=== PATIENT | male | born 1975 | race Caucasian/White ===

== ENCOUNTER → 2021-04-08 16:10 | Outpatient (BNVA) | payer BC, MEDICAID, SELFPAY | PROVIDERS: Visit Provider Nurse Practitioner Family | DX: Z20.822 Contact with and (suspected) exposure to COVID-19 (principal) | CPT/HCPCS: 87426 ==

== ENCOUNTER 2021-09-28 13:51 | Emergency (ER) | payer BC, MEDICAID, SELFPAY ==
[2021-09-28 14:00] VITALS: BP 148/83; PULSE 69; RESP 16; TEMP 36.8; O2SAT 98; BMI 28.5
--- NOTE | 2021-09-28 15:04 | W.ED.DENTAL ---
HPI - Dental/Oral General: Chief complaint: Dental/Oral Stated complaint: dental pain/sore throat Time Seen by Provider: 09/28/21 14:18 History of Present Illness: Patient is a 45-year-old male comes to the ED with dental pain. Dental pain was located in the back lower right molar pain has been going on now for several days. He rates the pain currently a 7 out of 10. He is taken 800 mg of ibuprofen earlier today to help with pain. He has been calling around dentist to see if he can get in and be evaluated. He talked with Dr. Parra and he would see patient for evaluation. Associated symptoms: Denies fever(s) or odynophagia Review of Systems Const: Denies: fever(s), chills or fatigue Eyes: Denies: change in vision or eye discomfort ENMT: Reports: dental pain; Denies: throat pain, odynophagia, nasal discharge or nasal congestion Card: Denies: chest pain, palpitations, edema, swelling of feet/ankles, dyspnea on exertion or orthopnea Resp: Denies: dyspnea, productive cough or non-productive cough GI: Denies: abdominal pain, nausea, vomiting, diarrhea, constipation or hematochezia : Denies: flank pain, difficulty urinating, dysuria or hematuria Musc: Denies: neck pain, back pain or extremity swelling Skin/Breast: Denies: rash or new lesions Neuro: Denies: headache(s), numbness in extremities or weakness in extremities PFS ED PFSH: Medical History No pertinent family history No pertinent past medical history Physical Exam Const: COMMON NORMALS: patient oriented x3 and alert GENERAL APPEARANCE: cooperative HENMT: COMMON NORMALS: normocephalic HEAD & SCALP: normocephalic MOUTH: Normal oral and palatal mucosa present TEETH & GINGIVA: Yes caries (Dental caries back lower right molars.) THROAT: posterior oropharynx normal and uvula midline Neck/C-Spine: COMMON NORMALS: supple GENERAL: Yes normal visual inspection Resp: COMMON NORMALS: normal respiratory effort, No retractions, No use of accessory muscles and clear to auscultation bilaterally AUSCULTATION: clear to auscultation bilaterally Cardio: COMMON NORMALS: regular rate, regular rhythm, S1 normal heart sound present, S2 normal heart sound present, No gallops present (Cardio), No clicks present (Cardio), No murmurs present (Cardio) and Peripheral pulses 2+ throughout RATE: regular rate RHYTHM: regular rhythm HEART SOUNDS: S1 normal heart sound present and S2 normal heart sound present PERIPHERAL PULSES: Peripheral pulses 2+ throughout GI: COMMON NORMALS: Normal to inspection, nondistended, normoactive bowel sounds present, Soft to palpation, non-tender and no masses PALPATION: Yes Soft to palpation : COMMON NORMALS: Yes no CVA tenderness BLADDER/KIDNEY EXAM: Yes no CVA tenderness Back/Pelvis: COMMON NORMALS: no CVA tenderness Extremity: COMMON NORMALS: normal to inspection Neuro: COMMON NORMALS: patient oriented x3 and moves all extremities SENSORIUM/ORIENTATION: Yes alert Skin: GENERAL SKIN EXAM: dry skin Course Vital Signs: Vital signs: Vital Signs Temperature 98.2 F 09/28/21 14:00 Pulse Rate 69 09/28/21 14:00 Respiratory Rate 16 09/28/21 14:00 Blood Pressure 148/83 09/28/21 14:00 Pulse Oximetry 98 09/28/21 14:00 [facility] - Dental/Oral Medical Decision Making Patient is a 45-year-old male comes to the ED with dental pain. Symptoms started a couple days ago. He currently has a dentist that we will see him for further evaluation. Exam shows a nontoxic-appearing 45-year-old male in no acute distress. He does have some dental caries in his back bottom right molars. He was diagnosed with dental pain due to dental caries and discharged home with a prescription for clindamycin and Celebrex. Return ED precautions given. Follow-up with dentist at your appointment for further evaluation. Patient understood agree with plan. Discharge Plan Discharge Patient Disposition: Home Clinical Impression: Pain due to dental caries Condition: Stable Prescriptions: New clindamycin HCl 150 mg capsule 300 mg PO QID 7 Days Qty: 56 0RF Celebrex 100 mg capsule 100 mg PO BID PRN (Reason: pain) Qty: 30 0RF Lidocaine Viscous 2 % solution 1 applic mucous membrane BID PRN (Reason: pain) Qty: 100 0RF Discharge Orders: Discharge ED (Routine); Ordered 09/28/21 Ordered By: Cory Palmer Discharge Diet: Regular Discharge Activity: Resume usual activity Patient Instructions: Dental Caries (Cavities) Activity Restrictions/Additional Instructions: Follow-up with dentist as soon as possible for further evaluation of dental pain. Take medications as prescribed. Return to the ER or your medical provider if condition worsens. Please read and understand discharge instructions. Thank you for choosing [facility] for your healthcare needs today. Please realize this is an emergency room and that we are providing you with a medical screening exam and this may not be complete and all inclusive of all the testing and or work up that you may need to determine your ailment or severity of your illness. It is very important that you follow up as instructed or that you return to the Emergency Department should you have concerns or if your condition changes or worsens in any way. Coding Level of Care Code ED Footwear Sales Representative for Karli Fwdeepa Exam Comprehensive
[2021-09-28] MEDS: HYDROcodone-acetaminophen 7.5-325 mg Tablet 1 TAB PO (15:22)
[2021-09-28] MEDS: clindamycin 150 mg Capsule 300 MG PO (15:22)
== END 2021-09-28 15:27 | disposition home or self-care (01) ==
PROVIDERS: Emergency Provider Physician Assistant
DX: K02.9 Dental caries, unspecified (principal)
CPT/HCPCS: 99283

== ENCOUNTER 2023-02-06 10:49 | Emergency (ER) | payer BC, MEDICAID, SELFPAY ==
[2023-02-06 11:06] VITALS: BP 136/78; PULSE 74; RESP 17; TEMP 36.4; O2SAT 99; BMI 27.9
--- NOTE | 2023-02-06 11:42 | XRR_ITS ---
PROCEDURE INFORMATION: Exam: XR Right Shoulder Exam date and time: 02/06/2023 11:47 AM Age: 47 years old Clinical indication: Pain; Shoulder; Right; Additional info: Pain and possbile injury TECHNIQUE: Imaging protocol: Radiologic exam of the right shoulder. Views: 2 or more views. COMPARISON: No relevant prior studies available. FINDINGS: Bones/joints: Normal. Soft tissues: Normal. XR/XR shoulder RT min 2V* [id number] IMPRESSION: No acute findings.
--- NOTE | 2023-02-06 11:42 | W.ED.EXTPRO ---
HPI - Extremity Problem General: Chief complaint: Extremity Problem,Nontraumatic Stated complaint: left shoulder injury Time Seen by Provider: 02/06/23 11:19 Source: patient and family Mode of arrival: ambulatory Limitations: no limitations History of Present Illness: This patient presents to the emergency department because of persistent right upper extremity pain. He states his symptoms began after doing an unusual job at his workplace. He was moving boards off a conveyor predominantly carrying them on his right shoulder to another location and offloading the boards. He did this most of his workday. This is not a job he usually does. He states he felt sore at the end of the day but did not think much of it at that time. There is no falls or other known injuries. 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 He then went to [facility] and was started on analgesics and muscle relaxant. He states that his right arm is still painful predominantly noting in his upper arm and some into his right shoulder and lateral neck. He states that when he takes weight off of his arm his symptoms improved. He does have a history of carpal tunnel syndrome in the past and is having some referred pain down into his wrist. 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 but just pain in his arm per prevents him from doing his usual activities. He denies any other injuries or other symptoms at this time. He is right-handed. MD Complaint: extremity pain Radiation: distal Relieving factors: immobilization Associated symptoms: Deny chest pain, fever(s) or rash Review of Systems Const: Denies: fever(s) Eyes: Denies: change in vision ENMT: Denies: odynophagia, nasal discharge or nasal congestion Card: Denies: chest pain, palpitations, irregular heart rhythm or edema GI: Denies: abdominal pain, nausea or vomiting Musc: Reports: neck pain, back pain and extremity pain Skin/Breast: Denies: rash or pruritus Neuro: Denies: numbness in extremities or weakness in extremities PFS ED PFSH: Medical History No pertinent family history No pertinent past medical history Physical Exam Narrative: EXAM NARRATIVE: Patient makes good eye contact speech is goal-directed and fluent. Const: COMMON NORMALS: no acute distress, average body habitus and patient oriented x3 GENERAL APPEARANCE: cooperative ORIENTATION/CONSCIOUSNESS: Yes awake HENMT: COMMON NORMALS: normocephalic, atraumatic and moist oral mucous membranes HEAD & SCALP: normocephalic and atraumatic Eye: COMMON NORMALS: Equal, round and reactive pupils present PUPIL: Yes Equal, round and reactive pupils present Neck/C-Spine: OTHER: Range of motion cervical spine is normal to sidebending and rotation to the left however its restricted to approximately 60% and normal range of motion to rotation to the right. He also has limited forward bending. There is tenderness to palpation with soft tissue trigger points and tenderness along the superior trapezius. None the midline. No step-offs. No left-sided soft tissue tenderness. Chest: COMMONS NORMALS: normal inspection of the chest Resp: COMMON NORMALS: normal respiratory effort Cardio: COMMON NORMALS: Peripheral pulses 2+ throughout PERIPHERAL PULSES: Peripheral pulses 2+ throughout : COMMON NORMALS: Yes no CVA tenderness BLADDER/KIDNEY EXAM: Yes no CVA tenderness Back/Pelvis: COMMON NORMALS: no CVA tenderness, thoracic and lumbar spine normal to inspection, no thoracic nor lumbar tenderness and thoraco-lumbar ROM normal BACK IMAGE (MALE): 1. Soft tissue tenderness Extremity: COMMON NORMALS: normal to inspection NARRATIVE EXTREMITY EXAM: Right upper extremity is notable for tenderness in the proximal bicipital tendon. He also has reduced range of motion to external rotation AB duction and extension at the right shoulder. Distal range of motion at the elbow wrist and hand is normal. Neurovascular intact distally. There is no Tinel or Phalen sign noted. Remainder of his musculoskeletal examination is normal with no deformity diminished range of motion or other abnormalities noted. Neuro: COMMON NORMALS: patient oriented x3, moves all extremities, no focal motor deficits and no sensory deficits noted Psych: COMMON NORMALS: mental status grossly normal Skin: COMMON NORMALS: no rashes or lesions noted and turgor normal GENERAL SKIN EXAM: no rashes or lesions noted and turgor normal Course Reevaluation(s): Reevaluation #1: Discussed current findings, treatment recommendations and expected course. This clearly appears to be a soft tissue overuse injury likely work-related based on current history and findings. Will initiate sling to help reduce stress on the shoulder girdle and also start a Lidoderm patch to see if we can give him some additional relief. Will likely need referral for follow-up. 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 No evidence at this time to suggest occult fracture, dislocation or other concerning finding. Appears to be all soft tissue related with current clinical picture. We will attempt symptomatic relief from the emergency department with referral for follow-up. Expected course and return precautions were also reviewed Lab Data I reviewed the patient's lab results. Radiology Impressions Shoulder X-Ray 02/06/23 11:42 IMPRESSION: No acute findings. All radiology interpretation(s) finalized by discharge Discharge Plan Discharge Patient Disposition: Home Clinical Impression: Right shoulder injury Condition: Stable Prescriptions: New Lidoderm 5 % adhesive patch,medicated 1 patch topical DAILY Qty: 15 0RF Rx Instructions: leave on most painful area for up to 12 hrs No Action Celebrex 100 mg capsule 100 mg PO BID PRN (Reason: pain) Qty: 30 0RF Lidocaine Viscous 2 % solution 1 applic mucous membrane BID PRN (Reason: pain) Qty: 100 0RF Discharge Orders: Discharge ED (Routine); Ordered 02/06/23 Ordered By: Mio Her Referrals: Timothy Hu MD [Primary Care Provider] - Discharge Diet: Usual diet Discharge Activity: Limit activity as instructed and Return to work/school after cleared by PCP/Specialist Patient Instructions: Shoulder Pain (ED), Opioid Safety, Pain Management Activity Restrictions/Additional Instructions: As we discussed while you are in the emergency department you have injured your right shoulder and upper arm due to what seems to be an overuse injury at work. We have prescribed a Lidoderm patch to help with some of your discomfort as well as a sling. You should remove your shoulder from the sling several times daily to do passive range of motion to help reduce likelihood of a frozen shoulder. We also initiated a follow-up appointment with orthopedics. Your symptoms persist worsen or new symptoms develop you are welcome to return to the emergency department at any time. Coding Level of Care Code ED General Internist And Physician Leader for Karli Rand
[2023-02-06] MEDS: lidocaine 5% Patch 1 PATCH TOPICAL (13:10)
[2023-02-06 13:19] VITALS: BP 124/68; PULSE 74; RESP 16; TEMP 36.4; O2SAT 99
--- NOTE | 2023-02-07 08:24 | DCPLANNER ---
Referral was sent to ortho clinic on 02/07 at 0824am. Clinic to contact patient.
== END 2023-02-06 13:19 | disposition home or self-care (01) ==
PROVIDERS: Emergency Provider Emergency Medicine; PCP Family Medicine
DX: S49.91XA Unspecified injury of right shoulder and upper arm, initial encounter (principal); X50.0XXA Overexertion from strenuous movement or load, initial encounter; Y99.0 Civilian activity done for income or pay
CPT/HCPCS: 73030; 99283

== ENCOUNTER → 2023-02-10 09:55 | Outpatient (BNVA) | payer BC, MEDICAID, SELFPAY | PROVIDERS: PCP Family Medicine; Referring Provider Emergency Medicine; Visit Provider Physician Assistant | DX: S49.91XA Unspecified injury of right shoulder and upper arm, initial encounter (principal); M54.12 Radiculopathy, cervical region; X58.XXXA Exposure to other specified factors, initial encounter | CPT/HCPCS: 72050 ==

== ENCOUNTER 2023-03-16 13:46 | Outpatient (CLI) | payer BC, MEDICAID, SELFPAY ==
--- NOTE | 2023-03-16 13:45 | MR_ITS ---
WS: [id number] MRI CERVICAL SPINE NONCONTRAST TECHNIQUE: Sagittal T1, T2 and STIR imaging. Axial T2, gradient, and fiesta imaging. CLINICAL INFORMATION: neck pain COMPARISON: None. FINDINGS: Straightening of the normal cervical lordosis. Cord signal is normal. Mild disc bulging worse C4-C5 a nd C5-C6. C2-C3: Normal. C3-C4: Normal. C4-C5: Mild facet arthropathy. Spinal canal and foramen are patent. C5-C6: Disc osteophyte complex with endplate ridging. Effacement of the ventral thecal sac. Mild cent ral canal stenosis. Slight contact of the cervical cord. Moderate LEFT and mild RIGHT bony foraminal narrowing. Uncovertebral joint hypertrophy. Moderate facet arthropathy. C6-C7: Disc osteophyte complex with endplate ridging. Uncovertebral joint hypertrophy. Moderate RIGHT and mild LEFT bony foraminal narrowing. Mild facet arthropathy. C7-T1: Normal. Visualized brain stem structures: Normal. Prevertebral soft tissues: Normal. IMPRESSION: 1. Straightening of the normal cervical lordosis. Cord signal is normal. 2. Moderate LEFT C5-C6 and RIGHT C6-7 bony foraminal narrowing. 3. Mild central canal stenosis C5-C6 with a RIGHT paracentral disc osteophyte complex with slight co ntact of the cervical cord.
== END 2023-03-16 13:47 | disposition home or self-care (01) ==
LOC: RAD 13:46
PROVIDERS: PCP Family Medicine; Visit Provider Physician Assistant
DX: M54.12 Radiculopathy, cervical region (principal); S49.91XA Unspecified injury of right shoulder and upper arm, initial encounter; X58.XXXA Exposure to other specified factors, initial encounter
CPT/HCPCS: 72141

== ENCOUNTER 2023-04-25 13:04 | Emergency (ER) | payer BC, MEDICAID, SELFPAY ==
[2023-04-25 13:21] VITALS: BP 144/85; PULSE 103; RESP 16; TEMP 37.1; O2SAT 98; BMI 28.7
--- NOTE | 2023-04-25 16:18 | ED_ITS ---
HPI - Neck Pain/Injury General: Chief Complaint: Neck Pain/Injury Stated Complaint: neck pain Time Seen by Provider: 04/25/23 16:09 Source: patient Mode of arrival: ambulatory Limitations: no limitations History of Present Illness: 47-year-old male had neck pain for month s he has had MRI he saw Ortho states he is scheduled to see pain management in 2 weeks we had increased pain. He states that he is got pain that shoots down his right arm he states that he feels like he needs a steroid shot until he gets into see pain management denies any new injuries denies any headache Associated symptoms: Denies headache(s) or nausea Review of Systems Const: Denies: fever(s), chills, body aches or change in appetite ENMT: Denies: throat pain or dental pain Card: Denies: chest pain Resp: Denies: dyspnea GI: Denies: abdominal pain, nausea, vomiting or diarrhea Musc: Reports: neck pain; Denies: back pain Skin/Breast: Denies: rash Neuro: Denies: headache(s) PFS ED PFSH: Medical History No pertinent past medical history No pertinent family history Physical Exam Const: COMMON NORMALS: no acute distress, patient oriented x3 and healthy appearing HENMT: COMMON NORMALS: normocephalic and atraumatic HEAD & SCALP: normocephalic and atraumatic Neck/C-Spine: OTHER: Tenderness along the right side of the neck no midline tenderness Chest: COMMONS NORMALS: normal inspection of the chest Resp: COMMON NORMALS: normal respiratory effort Cardio: COMMON NORMALS: regular rate, regular rhythm and No murmurs present (Cardio) RATE: regular rate RHYTHM: regular rhythm Extremity: COMMON NORMALS: normal to inspection and full ROM Neuro: COMMON NORMALS: patient oriented x3, moves all extremities and no focal motor deficits Psych: COMMON NORMALS: mental status grossly normal, Normal thought process present and cooperative THOUGHT PROCESS: Normal thought process present Skin: COMMON NORMALS: no rashes or lesions noted and no wounds GENERAL SKIN EXAM: no rashes or lesions noted Course Vital Signs: Vital signs: Vital Signs Temperature 98.7 F 04/25/23 13:21 Pulse Rate 103 H 04/25/23 13:21 Respiratory Rate 16 04/25/23 13:21 Blood Pressure 144/85 01/15/24 13:21 Pulse Oximetry 98 04/25/23 13:21 Oxygen Delivery Me thod Room Air 04/25/23 13:21 MDM - Neck Pain/Injury Medical Decision Making Patient presents here with neck pain that is chronic in nature. Patient's has no signs of acute cord compression or epidural abscess. Did give him Decadron along with Naprosyn he is to follow-up with pain management as scheduled return if worsening. Medical Records I reviewed the patient's medical records. No radiology studies performed this visit Discharge Plan Discharge Patient Disposition: Home Clinical Impression: Cervical radiculopathy Condition: Stable Prescriptions: New methocarbamol 750 mg tablet 750 mg PO Q6H PRN (Reason: spasms) Qty: 20 0RF Naprosyn 500 mg tablet 500 mg PO BID PRN (Reason: pain) Qty: 20 0RF No Action tizanidine 4 mg capsule 4 mg PO BID PRN prednisone 20 mg tablet 20 mg PO DAILY Qty: 15 0RF Rx Instructions: Take 60mg (3 tabs) days 1, 2, 3 Take 40mg (2 tabs) days 4 and 5 take 20mg (1 tab) days 6 and 7 Lidoderm 5 % adhesive patch,medicated 1 patch topical DAILY Qty: 15 0RF Rx Instructions: leave on most painful area for up to 12 hrs Discharge Orders: Discharge ED (Routine); Ordered 04/25/23 Ordered By: Saroj Robbins Referrals: Timothy Hu MD [Primary Care Provider] - Discharge Diet: Advance as tolerated Discharge Activity: Resume usual activity Patient Instructions: Neck Pain (ED) Coding Level of Care Code ED Paper Coating Supervisor for Karli Rand
[2023-04-25] MEDS: dexamethasone 10 mg/mL INJ IM (16:22)
[2023-04-25] MEDS: ketorolac 60 mg/2 mL INJ IM (16:22)
[2023-04-25 16:31] VITALS: BP 139/78; PULSE 85; RESP 16; O2SAT 100
== END 2023-04-25 16:32 | disposition home or self-care (01) ==
PROVIDERS: Emergency Provider Emergency Medicine; PCP Family Medicine
DX: M54.12 Radiculopathy, cervical region (principal)
CPT/HCPCS: 96372; 99284; J1100; J1885